=== PATIENT | male | born 1965 | race Caucasian/White ===

== ENCOUNTER 2017-01-10 19:35 | Inpatient (IN) | payer BC ==
[~2017-01-10] VITALS: Ht 177.8 cm; Wt 84.1 kg
[2017-01-10 20:56] LABS: APPEARANCE CLEAR (CLEAR); BILIRUBIN NEGATIVE (NEGATIVE); COLOR YELLOW (YELLOW); GLUCOSE NEGATIVE (NEGATIVE); KETONE NEGATIVE (NEGATIVE); LEUKOCYTE ESTERASE NEGATIVE (NEGATIVE); NITRITE NEGATIVE (NEGATIVE); PROTEIN NEGATIVE (NEGATIVE); SPECIFIC GRAVITY 1.015 (1.005-1.020); UROBILINOGEN NORMAL (NORMAL)
[2017-01-10 20:59] LABS: HEMATOCRIT 38.9 % (42.0-54.0); HEMOGLOBIN 13.4 g/dL (13.5-17.5); MCH 30.2 pg (26.0-34.0); MCHC 34.4 g/dL (31.0-37.0); MCV 87.8 fL (80.0-100.0); MEAN PLATELET VOLUME 9.3 fL (7.4-10.4); PLATELET COUNT 400 10x3/uL (130-400); RBC 4.43 10x6/uL (4.20-6.10); RDW 13.3 % (11.5-14.5); WBC 25.6 10x3/uL (4.8-10.8)
[2017-01-10 21:07] LABS: ALBUMIN 2.4 g/dL (3.4-5.0); ALKALINE PHOSPHATASE 229 U/L (46-116); ALT (SGPT) 28 U/L (10-68); CALC OSMOLALITY 267 mosm/kg (275-300); CALCIUM 9.3 mg/dL (8.5-10.1); CARBON DIOXIDE 31.5 mmol/L (21.0-32.0); CHLORIDE - SERUM 91 mmol/L (98-107); CREATININE - SERUM 0.9 mg/dL (0.6-1.3); GLUCOSE 145 mg/dL (74-106); MAGNESIUM - SERUM 1.6 mg/dL (1.8-2.4); POTASSIUM - SERUM 3.6 mmol/L (3.5-5.1); PROTEIN - SERUM 7.8 g/dL (6.4-8.2); SODIUM 131 mmol/L (136-145); UREA NITROGEN 17 mg/dL (7-18); eGFR NON AFRICAN AMERICAN > 90 mL/min (90-120)
[2017-01-10 22:04] LABS: EOSINOPHILS 3 % (0-7); LYMPHOCYTES 12 % (15-50); MONOCYTES 3 % (2-11); NEUTROPHILS 82 % (40-80); PLATELET ESTIMATE NORMAL
--- NOTE | 2017-01-11 05:32 | NUR ---
RECIEVED PT TO ED VIA STRETCHER. ALERT AND ORIENTED AND ABLE TO VERBALIZE NEEDS. IV IS PATENT AND SALINE LOC AT THIS TIME. PT STATES PAIN IS 7/10. PT WALKED TO BED FROM STRETCHER. PT IS ORIENTED TO ROOM AND USE OF CALL LIGHT. URINAL PROVIDED. NO NEEDS ARE VERBALIZED AT THIS TIME. WILL CONTINUE TO MONITOR. SIDE RAILS ARE UP X 2. BED IS IN LOWEST POSITION. CALL LIGHT IS WITHIN REACH.
[2017-01-11 06:08] VITALS: BP 127/64; Ht 177.8 cm; Wt 84.1 kg
[2017-01-11] MEDS ORDERED: LISINOPRIL10 MG PO (06:17)
[2017-01-11] MEDS ORDERED: PERCOCET 10/3251 TA1 PO (06:17)
--- NOTE | 2017-01-11 07:30 | NUR ---
REPORT RECEIVED FROM DENTAL DETAIL REPRESENTATIVE NURSE. CALL LIGHTIN REACH. WILL CONTINUE WITH PLAN OF CARE.
--- NOTE | 2017-01-11 08:30 | NUR ---
ASSESSMENT COMPLETED. CALL LIGHT IN REACH. WILL CONTINUE WITH PLAN OF CARE.
[2017-01-11 08:42] VITALS: BP 129/63
--- NOTE | 2017-01-11 10:59 | NUR ---
AM MEDS ADMINISTERED. WILL PUT ON SCDs WHEN [facility] GETS A MACHINE IN HERE.
[2017-01-11 11:15] LABS: HEMATOCRIT 34.5 % (42.0-54.0); HEMOGLOBIN 11.7 g/dL (13.5-17.5); LYMPHOCYTES 9.1 % (15-50); MCH 29.2 pg (26.0-34.0); MCHC 33.9 g/dL (31.0-37.0); MEAN PLATELET VOLUME 8.5 fL (7.4-10.4); NEUTROPHILS 84.3 % (40-80); PLATELET COUNT 378 10x3/uL (130-400); RBC 4.01 10x6/uL (4.20-6.10); RDW 12.9 % (11.5-14.5); WBC 24.6 10x3/uL (4.8-10.8)
--- NOTE | 2017-01-11 11:17 | NUR ---
PASSWORD AND PHARMACY OBTAINED.
[2017-01-11 11:26] LABS: ALKALINE PHOSPHATASE 185 U/L (46-116); BILIRUBIN - TOTAL 0.51 mg/dL (0.2-1.3); CALCIUM 8.5 mg/dL (8.5-10.1); CARBON DIOXIDE 29.5 mmol/L (21.0-32.0); CHLORIDE - SERUM 93 mmol/L (98-107); GLUCOSE 134 mg/dL (74-106); PROTEIN - SERUM 6.9 g/dL (6.4-8.2); SODIUM 132 mmol/L (136-145)
[2017-01-11 11:34] LABS: ALT (SGPT) 19 U/L (10-68); CALC OSMOLALITY 265 mosm/kg (275-300); CREATININE - SERUM 0.5 mg/dL (0.6-1.3); UREA NITROGEN 10 mg/dL (7-18); eGFR NON AFRICAN AMERICAN > 90 mL/min (90-120)
[2017-01-11 11:58] VITALS: BP 133/71
--- NOTE | 2017-01-11 14:40 | NUR ---
PT USING URINAL AT THIS TIME, EXITED THE ROOM TO ALLOW PT PRIVACY. RE-ENTERED ROOM PT HAD NO COMPLAINTS OF PAIN OR DISCOMFORT. ASSESSMENT DONE PER FLOWSHEET. BED IN LOW POSITION AND CALL LIGHT WITHIN REACH. WILL CONTINUE TO MONITOR.
[2017-01-11 15:08] VITALS: BP 135/71
--- NOTE | 2017-01-11 15:22 | NUR ---
MORPHINE IV PER BACK PAIN.
--- NOTE | 2017-01-11 16:53 | NUR ---
SPOKE WITH DR. SINGH REGARDING STATUS OF VANCOMYCIN ON HOLD. HE REPORTS THAT DR. GOINS WILL MAKE THE DECISION OF WHEN TO START ABX.
[2017-01-11 20:00] VITALS: BP 145/79
--- NOTE | 2017-01-11 20:00 | NUR ---
ASSESSMENT PER FLOWSHEET. IV PATENT LEFT ARM OF NS AT 50CC'S/HR SITE CLEAR. ALERT ORIENTED X4 SLIGHT WEAKNESS NOTED IN BOTH LEGS. PT IN CONTACT ISOLATION.
--- NOTE | 2017-01-11 21:30 | NUR ---
MEDS GIVEN PER MAR.
--- NOTE | 2017-01-11 22:06 | NUR ---
XIJQ=851.2. C/O PAIN IN HIS BACK. TYLENOL 650MG PO GIVEN FOR FEVER. MORPHINE 4 MG IVP GIVEN FOR BACK PAIN. DR. CRANDALL PHONED TO GET UPDATE INFORMATION OF PT'S MAR RESULTS. NO NEW ORDERS.
[2017-01-12] VITALS: BP 129/80
--- NOTE | 2017-01-12 01:20 | NUR ---
EYES CLOSED RESPIRATIONS WITH EASE AND UNLABORED.
--- NOTE | 2017-01-12 02:17 | NUR ---
C/O BACK PAIN MORPHINE 4 MG IVP GIVEN FOR PAIN CONTROL
[2017-01-12 04:00] VITALS: BP 141/79
[2017-01-12 06:20] LABS: ALBUMIN 1.9 g/dL (3.4-5.0); ALKALINE PHOSPHATASE 177 U/L (46-116); BASOPHILS 0.1 % (0-2); CALC OSMOLALITY 266 mosm/kg (275-300); CALCIUM 8.6 mg/dL (8.5-10.1); CARBON DIOXIDE 32.4 mmol/L (21.0-32.0); CHLORIDE - SERUM 94 mmol/L (98-107); EOSINOPHILS 0.1 % (0-7); GLUCOSE 136 mg/dL (74-106); HEMATOCRIT 35.2 % (42.0-54.0); IMMATURE GRANULOCYTES 0.6 % (0-5); LYMPHOCYTES 6.8 % (15-50); MCH 29.6 pg (26.0-34.0); MCHC 34.1 g/dL (31.0-37.0); MCV 86.9 fL (80.0-100.0); MEAN PLATELET VOLUME 9.2 fL (7.4-10.4); MONOCYTES 7.3 % (2-11); NEUTROPHILS 85.1 % (40-80); PLATELET COUNT 378 10x3/uL (130-400); PROTEIN - SERUM 6.8 g/dL (6.4-8.2); RBC 4.05 10x6/uL (4.20-6.10); RDW 13.3 % (11.5-14.5); SODIUM 133 mmol/L (136-145); UREA NITROGEN 9 mg/dL (7-18); WBC 22.4 10x3/uL (4.8-10.8)
[2017-01-12 06:31] LABS: ALT (SGPT) 14 U/L (10-68); CREATININE - SERUM 0.7 mg/dL (0.6-1.3); eGFR NON AFRICAN AMERICAN > 90 mL/min (90-120)
[2017-01-12 07:03] LABS: C-REACTIVE PROTEIN 58.7 mg/dL (0.0-0.9)
--- NOTE | 2017-01-12 07:50 | NUR ---
ASSESSMENT PER FLOW SHEET. PT WITHOUT DISTRESS.STATES PAIN 6/10 TO BACK. REQUEST MEDS AT 1000.INCISION LUMBAR REGION WITHOUT DRAINAGE AT PRESENT.CALL LIGHT IN REACH,USE INSTRUCTED.CONTACT ISOLATION MAINTAINED.
[2017-01-12 08:01] LABS: ERYTHROCYTE SEDIMENTATION RATE 107 mm/hr (0-20)
[2017-01-12 08:09] VITALS: BP 115/73
--- NOTE | 2017-01-12 10:21 | NUR ---
IV LEFT AC LEAKING AFTER NEAR FALL.IV ATTEMPTED TO RESITE X2 BUT UNABLE TO GET IV SITED.IV LEFT AC DCD WITH CATH TIP INTACT.FALL PREVENTION INITIATED WITH BOX ALARM ,BAND AND SOCKS.PT INSTRUCTED NOT TO GET OUT OF BED.HE STATES HE HAD HIS HIP GIVE OUT AND NEARLY FELL.
[2017-01-12] MEDS ORDERED: NICODERM C1 PATCH .1 TRANSDERM (10:39)
[2017-01-12] MEDS ORDERED: FLORAJEN3 CAPS460 MG PO (10:40)
[2017-01-12] MEDS ORDERED: ANUSOL-HC25 MG RC (10:40)
[2017-01-12] MEDS ORDERED: PROTONIX40 MG PO (10:40)
[2017-01-12] MEDS ORDERED: VANCOMYCIN 1 GM/1 G1 IV (10:41)
[2017-01-12 11:44] VITALS: BP 131/86
--- NOTE | 2017-01-12 11:53 | NUR ---
REPORT TO [facility],SPOKE WITH MJ ALVAREZ RN
--- NOTE | 2017-01-12 12:06 | NUR ---
[facility]ILSON SPOKE WITH [facility] WITH [facility] IN [place]. DR. MANLEY HAS ACCEPTED PATIENT PER DR. SINGH. PATIENT WILL BE TRANSFERRED TODAY BY AMBULANCE TO [facility] TO ROOM 122. AWARE. [phone] FAX [phone] REPORT CALLED BY RN TO [phone]
--- NOTE | 2017-01-12 14:58 | NUR ---
DISCHARGE INSTRUCTIONS,STATES UNDERSTANDING. PT WILL GO TO [facility] VIA AMBULANCE. AT SIDE.PAIN MEDS ORDERED FOR PAIN 8/10 SCALE TO BACK. WAITING ON [facility] FOR [facility]SPORT.
--- NOTE | 2017-01-12 15:19 | NUR ---
LEFT UNIT WITH [facility] FOR TRANSPORT TO [place]
--- NOTE | 2017-01-12 16:29 | NUR ---
LATE ENTRY: PATIENT HAS D/C AND IS BEING TRANSPORTED BY [facility] TO [facility] IN [place].
== END 2017-01-12 15:20 | disposition short-term general hospital (02) | DRG 863 ==
LOC: OBSVTIME → D.ER 19:35 → D.MS 01-11 04:22 → OBSVTIME 01-11 04:22 → D.MS 01-12 10:09
PROVIDERS: Emergency Medicine; Nurse Practitioner Family; ADMIT Family Medicine
DX: T81.4XXA Infection following a procedure, initial encounter (principal); F17.203 Nicotine dependence unspecified, with withdrawal; M46.26 Osteomyelitis of vertebra, lumbar region; I10 Essential (primary) hypertension; K21.9 Gastro-esophageal reflux disease without esophagitis; M46.46 Discitis, unspecified, lumbar region